=== PATIENT | female | born 1995 | race Caucasian/White ===

== ENCOUNTER 2021-01-11 07:04 | Outpatient (CLI) | payer OTHER | END 2021-01-11 15:00 | disposition home or self-care (01) | LOC: LAB 07:04 | PROVIDERS: ATTEND Internal Medicine Endocrinology, Diabetes & Metabolism | DX: Z03.818 Encounter for observation for suspected exposure to other biological agents ruled out (principal) ==

== ENCOUNTER 2022-12-14 14:33 | Emergency (ER) | payer OTHER ==
[~2022-12-14] VITALS: Ht 188 cm; Wt 84.8 kg
[2022-12-14] MEDS ORDERED: DUI500 PO (17:15)
[2022-12-14] MEDS ORDERED: MUPIROCIN15 GM TOP (17:15)
== END 2022-12-14 17:18 | disposition home or self-care (01) ==
LOC: ER 14:33
DX: S51.811A Laceration without foreign body of right forearm, initial encounter (principal); Z88.8 Allergy status to other drugs, medicaments and biological substances

== ENCOUNTER 2023-02-07 13:36 | Emergency (ER) | payer OTHER ==
[~2023-02-07] VITALS: Ht 188 cm; Wt 85.3 kg
[~2023-02-07 13:36] MED LIST: DUI500 PO; MUPIROCIN15 GM TOP
[2023-02-07] MEDS ORDERED: ANTIVERT25 M2 PO (17:33)
== END 2023-02-07 17:42 | disposition home or self-care (01) ==
LOC: ER 13:36
DX: S09.8XXA Other specified injuries of head, initial encounter (principal); X58.XXXA Exposure to other specified factors, initial encounter; Y93.68 Activity, volleyball (beach) (court); Y92.89 Other specified places as the place of occurrence of the external cause; Y99.8 Other external cause status; Z88.7 Allergy status to serum and vaccine